=== PATIENT | male | born 1945 | race Caucasian/White ===

== ENCOUNTER 2018-03-24 17:12 | Emergency (ER) | payer MEDICARE ==
[2018-03-24 17:22] VITALS: RESP 20
[2018-03-24] MEDS ORDERED: TETRACAINE HCL 1% SOL IJ SCH (17:30)
[2018-03-24] MEDS ORDERED: PROPARACAINE HCL 0.5% OPHTHALMIC SOL OP ONE (17:31)
[2018-03-24] MEDS ORDERED: PROPARACAINE HCL 0.5% OPHTHALMIC SOL ONE (17:38)
[2018-03-24 18:02] VITALS: BP 139/79; PULSE 63; TEMP 96.5; O2SAT 93
== END 2018-03-24 18:00 | disposition home or self-care (01) | DRG 125 ==
LOC: ED 17:12
DX: S05.01XA Injury of conjunctiva and corneal abrasion without foreign body, right eye, initial encounter (principal)
CPT/HCPCS: 99282; 99283; A9270-GY

== ENCOUNTER 2018-09-30 20:49 | Emergency (ER) | payer MEDICARE, OTHER ==
[2018-09-30 20:56] VITALS: RESP 20; TEMP 97
[2018-09-30] MEDS ORDERED: PREDNISONE 20 MG TAB PO ONE (21:39)
[2018-09-30] MEDS ORDERED: PREDNISONE 20 MG TAB ONE (21:40)
[2018-09-30 22:07] VITALS: BP 147/93; PULSE 65; O2SAT 95
== END 2018-09-30 22:02 | disposition home or self-care (01) | DRG 74 ==
LOC: ED 20:49
DX: G51.0 Bell's palsy (principal)
CPT/HCPCS: 99282; 99283; A9270-GY